=== PATIENT | male | born 1990 | race African-American/Black ===

== ENCOUNTER 2017-03-24 17:36 | Emergency (ER) | payer SELFPAY ==
[~2017-03-24] VITALS: Ht 185.4 cm; Wt 61.2 kg
[2017-03-24 17:38] VITALS: BP 130/93
== END 2017-03-24 19:03 | disposition home or self-care (01) ==
LOC: ER 17:41
DX: S93.401A Sprain of unspecified ligament of right ankle, initial encounter (principal); V29.9XXA Motorcycle rider (driver) (passenger) injured in unspecified traffic accident, initial encounter; Y93.89 Activity, other specified; Y92.89 Other specified places as the place of occurrence of the external cause; Y99.9 Unspecified external cause status
CPT/HCPCS: 73610; 99284; A4606; Z7610